=== PATIENT | female | born 1970 | race Caucasian/White ===

== ENCOUNTER → 2018-01-12 11:49 | Outpatient (CLI) | payer MEDICAID, SELFPAY ==
--- NOTE | 2018-01-12 12:38 | DI.REPORT_ITS ---
SYMPTOM/DIAGNOSIS: RT HIP INJECTION, ARTHRITIS RT HIP, M16.11 RIGHT HIP: Fluoroscopy Time: 2 sec A needle is positioned over the right hip joint in conjunction with a joint injection carried out by Dr. Oquendo. Please see the procedure report for further information.
[2018-01-12] MEDS: Bupivacaine 0.5% Pres-Free 10 ML VIAL 5 ML IJ ×2 (13:19→13:21)
[2018-01-12] MEDS: Omnipaque 300 MG/ML 10 ML BTL IJ (13:21)
[2018-01-12] MEDS: methylPREDNISolone ACETATE 80 MG/ML VIAL IM (13:22)
--- NOTE | 2018-01-12 14:11 | PROC.BLANK_ITS ---
Date of Service: 01/12/18 Time of Service: 14:11 Note: OUTPATIENT PROCEDURE NOTE Date of Procedure: January 12, 2018 Procedure: Right Hip Injection under Fluoroscopy Indication for Procedure: Daly has had persistent pain of the RIGHT hip and groin. Noninvasive measures have been tried. To serve as both diagnostic and therapeutic, an injection under fluoroscopy was recommended. I had discussed the risks of the procedure and the patient elected to proceed. Procedure Description: Daly was greeted in the flouroscopy room. The correct side was identified and the consent was reviewed with the patient and signed. The patient was then placed in the supine position on the fluoroscopy table. The RIGHT hip was then prepped with Chloraprep. The anterolateral injection starting point was identiifed by bony landmarks and fluoroscopy. The skin and soft tissue in the tract of the injection was anesthetized with 1% Lidocaine. A spinal needle was then inserted deep into the hip joint at the level of the lateral femoral neck under fluoroscopic guidance. A small amount of Omnipaque solution was injected to confirm intraarticular placement. Once confirmed, the hip was injected with 6cc of 0.5% Bupivicaine and 80mg of Depo- Medrol. A bandaid was placed on the injection site. The patient tolerated the procedure well and noted improvement in pre-injection pain.
== END ==
PROVIDERS: PCP Family Medicine; Visit Provider Student in an Organized Health Care Education/Training Program
DX: M25.552 Pain in left hip (principal); M16.11 Unilateral primary osteoarthritis, right hip
CPT/HCPCS: 20610; 77002; 76000; J1040

== ENCOUNTER 2020-04-23 16:56 | Outpatient (REF) | payer SELFPAY ==
[2020-04-27 13:55] LABS: Patient Race White; SARS-CoV-2 RNA Undetected (Undetected); SARS-CoV-2 Specimen Source Nasal
== END 2020-04-23 17:16 ==
LOC: NCHCN 16:56
PROVIDERS: PCP Family Medicine; Visit Provider Physician Assistant
DX: R05 Cough (principal); Z11.59 Encounter for screening for other viral diseases
CPT/HCPCS: U0003

== ENCOUNTER 2021-05-17 11:47 | Emergency (ER) | payer SELFPAY ==
[2021-05-17 11:51] VITALS: BP 130/92; PULSE 86; RESP 14; TEMP 36.7; O2SAT 96
[2021-05-17] MEDS: Normal Saline 1,000 ML 1000 ML IV (12:10)
[2021-05-17 12:16] LABS: Abs Immature Grans 0.02 10^3/uL (0.0-0.06); Absolute Basophil Count 0.09 10^3/uL (0.0-0.2); Absolute Eosinophil Count 0.17 10^3/uL (0.0-0.7); Absolute Lymphocyte Count 2.95 10^3/uL (1.2-3.4); Absolute Neutrophil Count 4.69 10^3/uL (1.2-6.7); Basophils % 1.1; HCT 46.7 % (36.0-46.0); HGB 15.2 g/dL (11.2-15.7); Immature Grans % 0.2; MCH 28.4 pg (27.0-33.0); MCHC 32.5 % (32.0-36.0); MCV 87.1 fL (80-95); MPV 9.8 fL (8.0-11.0); Monocytes % 5.9; Neutrophils % 55.8; Nucleated RBC 0 %; Platelet Count 401 10^3/uL (130-400); RBC 5.36 10^6/uL (3.93-5.22); RDW 13.9 % (11.7-14.6); RDW-SD 44.5 fL; WBC 8.42 10^3/uL (4.4-10.8)
[2021-05-17 12:27] LABS: Prothrombin Time 9.7 sec (9.3-11.0)
[2021-05-17 12:28] LABS: ALT 18 U/L (14-59); AST 13 U/L (15-37); Albumin 3.4 g/dL (3.4-5.0); Alkaline Phosphatase 72 U/L (46-116); Anion Gap 9.1 mmol/L (3-11); BUN 16 mg/dL (7-18); Bilirubin, Total 0.3 mg/dL (0.2-1.0); CO2 23.9 mmol/L (21.0-32.0); CREATININE 0.8 mg/dL (0.55-1.02); Calcium 8.8 mg/dL (8.5-10.1); Chloride 106 mmol/L (98-107); Glucose 100 mg/dL (74-106); Sodium 139 mmol/L (136-145); Total Protein 6.8 g/dL (6.4-8.2)
--- NOTE | 2021-05-17 13:06 | ED.GENADUL_ITS ---
Discharge Plan Disposition Patient Disposition: HOME Condition: Stable Discharge Details Clinical Impression: Rectal bleeding Primary Care Provider: Laly Johns V ED Provider: Jonathan Mistry Home Meds and New Rx's Prescriptions: Continued ibuprofen [Advil] 200 MG tablet 400 mg PO TID RF: 0 escitalopram oxalate [Lexapro] 20 MG tablet 20 mg PO DAILY RF: 0 omeprazole 20 mg Tablet,Delayed Release (Dr/Ec) 20 mg PO PRN PRNRF: 0 Discharge Instructions Instructions: Rectal Bleeding (ED) Additional Instructions: At this time your laboratory values are unremarkable and your vital signs are hemodynamically stable. CT was discussed and offered but instead you plan to follow-up with surgery to have a colonoscopy. Please watch for new or worsening symptoms and return to the ER for any concerns. Otherwise I recommend contacting the surgical team on Tuesday to discuss your ER visit and need for outpatient reevaluation. I have placed you on the surgical list to help expedite this follow-up. Referrals: Summer Balderas DO [OSTEOPATHIC DOCTOR] - Discharge Data Discharge Date/Time-TO BE ENTERED AT DEPARTURE: 05/17/21 13:29 Medical Decision Making This is a 50-year-old female presenting to the ER reporting bright red blood from her rectum that began on Tuesday and she passed a clot. Since that time she has noticed intermittent bright red blood with bowel movement but no more clotting. She denies generalized weakness, chest pain, shortness of breath, easy bruising or bleeding, abdominal pain, rectal pain, known hemorrhoids. Clinically she appears well, nontoxic and is hemodynamically stable. Abdominal examination is unremarkable. Female RN in room for rectal exam, I do appreciate external hemorrhoid does not appear to be bleeding or thrombosed, nontender. Rectal exam reveals a normal sphincter tone, brown stool, no obvious acute bleeding, hemorrhaging, clotting, etc. Heme positive. Will obtain IV access, give a liter of IV fluid, and obtain routine laboratory values including clotting factors and a type and cross. Laboratory values are unremarkable for evidence of leukocytosis, anemia, thrombocytopenia, etc. Chemistries reveal normal electrolytes, normal renal fun ction, PT is 9.7 INR 1.0. Blood type a positive. Work-up is thus far reassuring. No evidence of anemia. Patient does not require emergent blood transfusion. She remains hemodynamically stable. D iscussed work-up with the patient. We discussed that here in the ER I can obtain CT imaging of her abdomen and pelvis but ultimately she would likely need a surgical referral for a colonoscopy. At this time she declines further evaluation here in the ER as she feels well. I will place her on the surgical list to help expedite outpatient surgical follow-up. She was given strict discharge and return precautions. Upon discharge patient is asymptomatic and has no additional questions or concerns. She is hemodynamically stable. This documentation was generated using [employer] system, please disregard any oddities of phrase or misspellings. Medical Records Medical records reviewed: Yes I reviewed the patient's medical records. Lab Data Lab results reviewed: Yes I reviewed the patient's lab results. Labs: Laboratory Tests Range/Units 05/17/21 05/17/21 05/17/21 12:05 12:05 12:05 WBC (4.4-10.8) 10^3/uL 8.42 RBC (3.93-5.22) 10^6/uL 5.36 H Hgb (11.2-15.7) g/dL 15.2 Hct (36.0-46.0) % 46.7 H MCV (80-95) fL 87.1 MCH (27.0-33.0) pg 28.4 MCHC (32.0-36.0) % 32.5 RDW (11.7-14.6) % 13.9 Plt Count (130-400) 10^3/uL 401 H MPV (8.0-11.0) fL 9.8 Immature Gran % 0.2 Neutrophils % 55.8 Lymphocytes % 35.0 Monocytes % 5.9 Eosinophils % 2.0 Basophils % 1.1 Nucleated RBC % % 0 Absolute Neutrophils (1.2-6.7) 10^3/uL 4.69 Absolute Lymphocytes (1.2-3.4) 10^3/uL 2.95 Absolute Monocytes (0.1-0.8) 10^3/uL 0.50 Absolute Eosinophils (0.0-0.7) 10^3/uL 0.17 Absolute Basophils (0.0-0.2) 10^3/uL 0.09 PT (9.3-11.0) sec 9.7 INR (0.9-1.1) 1.0 Sodium (136-145) mmol/L 139 Potassium (3.5-5.1) mmol/L 4.0 Chloride (98-107) mmol/L 106 Carbon Dioxide (21.0-32.0) mmol/L 23.9 Anion Gap (3-11) mmol/L 9.1 BUN (7-18) mg/dL 16 Creatinine (0.55-1.02) mg/dL 0.8 Estimated GFR/1.73 m2 (mL/min/1.73m2) >= 60.00 Glucose (74-106) mg/dL 100 Calcium (8.5-10.1) mg/dL 8.8 Total Bilirubin (0.2-1.0) mg/dL 0.3 AST (15-37) U/L 13 L ALT (14-59) U/L 18 Alkaline Phosphatase (46-116) U/L 72 Total Protein (6.4-8.2) g/dL 6.8 Albumin (3.4-5.0) g/dL 3.4 Patient ABO/Rh Antibody Screen Range/Units 05/17/21 12:05 WBC (4.4-10.8) 10^3/uL RBC (3.93-5.22) 10^6/uL Hgb (11.2-15.7) g/dL Hct (36.0-46.0) % MCV (80-95) fL MCH (27.0-33.0) pg MCHC (32.0-36.0) % RDW (11.7-14.6) % Plt Count (130-400) 10^3/uL MPV (8.0-11.0) fL Immature Gran % Neutrophils % Lymphocytes % Monocytes % Eosinophils % Basophils % Nucleated RBC % % Absolute Neutrophils (1.2-6.7) 10^3/uL Absolute Lymphocytes (1.2-3.4) 10^3/uL Absolute Monocytes (0.1-0.8) 10^3/uL Absolute Eosinophils (0.0-0.7) 10^3/uL Absolute Basophils (0.0-0.2) 10^3/uL PT (9.3-11.0) sec INR (0.9-1.1) Sodium (136-145) mmol/L Potassium (3.5-5.1) mmol/L Chloride (98-107) mmol/L Carbon Dioxide (21.0-32.0) mmol/L Anion Gap (3-11) mmol/L BUN (7-18) mg/dL Creatinine (0.55-1.02) mg/dL Estimated GFR/1.73 m2 (mL/min/1.73m2) Glucose (74-106) mg/dL Calcium (8.5-10.1) mg/dL Total Bilirubin (0.2-1.0) mg/dL AST (15-37) U/L ALT (14-59) U/L Alkaline Phosphatase (46-116) U/L Total Protein (6.4-8.2) g/dL Albumin (3.4-5.0) g/dL Patient ABO/Rh A Positive Antibody Screen NEGATIVE HPI General Mode of arrival: ambulatory . Date/Time Provider Initiated Documentation: 05/17/21 12:01 . Limitations to Documentation: no limitations . Information obtained by: patient . HPI Narrative: This is a 50-year-old female, reports past medical history of GERD, presenting to the ER for what she describes as bright red blood from her rectum that began on Tuesday. Patient states on Tuesday she noticed a small clot as well. Since that time has had intermittent bleeding from her rectum, no more clots. She states that her stools are brown, denies black tarry stools. She denies history of GI bleeding, other easy bruising or bleeding, or vaginal bleeding. Patient denies any lightheadedness, weakness, recent illness or trauma, chest pain, shortness of breath, abdominal pain, nausea, vomiting, diarrhea. 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 States that on Tuesday she felt a slight abdominal fullness but the sensation is gone away and she denies any pain whatsoever. No change in appetite. Patient reports history of peptic ulcer, second episode x1 earlier this week but does not take it regularly. Related Data Home Medications Medication Instructions Recorded Confirmed escitalopram oxalate [Lexapro] 20 mg PO DAILY tab-cap 11/21/17 05/17/21 ibuprofen [Advil] 400 mg PO TID tab-cap 11/21/17 05/17/21 omeprazole 20 mg PO PRN PRN 05/17/21 05/17/21 Allergies Allergy/AdvReac Type Severity Reaction Status Date / Time Sulfa (Sulfonamide Allergy Mild Itching Unverified 05/17/21 12:00 Antibiotics) Penicillins Allergy Unknown Unverified 05/17/21 12:00 General Stated Complaint: GI Bleed KELLIE: 3 Review of Systems Constitutional Constitutional: Denies fatigue, Denies fever(s) and Denies weakness Cardiovascular Cardiovascular: Denies chest pain and Denies dyspnea Respiratory Respiratory: Denies cough and Denies dyspnea Gastrointestinal Gastrointestinal: Denies abdominal pain, Denies melena, Reports hematochezia, Denies constipation, Denies diarrhea, Denies nausea and Denies vomiting Genitourinary Genitourinary: Denies abnormal vaginal bleeding, Denies hematuria, Denies dysuria and Denies vaginal discharge Musculoskeletal Musculoskeletal: Denies back pain Integumentary/Breasts Skin/Breast: Denies rash Neurologic Neurologic: Denies weakness Endocrine Endocrine: Denies fatigue Hematologic/Lymphatic Hematologic/Lymphatic: Denies easy bleeding and Denies easy bruising PFSH All Active Problems Rectal bleeding (Acute) Social History Smoking/Tobacco Use Status: Current every day Smoking risk assessment performed?: Yes Alcohol Intake: current Alcohol Intake frequency: 0-2 drinks per day Alcohol type: beer Drug use: Never Substance use type: does not use Do you feel safe at home: Yes Do you feel safe in your relationship?: Yes Exam Const General: cooperative, healthy appearing, comfortable and no acute distress Orientation: alert, awake and oriented x3 HENMT Head: normal to inspection, normocephalic and atraumatic Mouth: moist mucous membranes Eyes General: appearance normal, both eyes and all related structures Conjunctivae: conjunctivae normal Neck Neck: normal visual inspection, trachea midline and supple Resp Effort & Inspection: normal respiratory effort and able to speak in complete sentences Auscultation: clear to auscultation bilaterally Cardio Rate: regular rate Rhythm: regular rhythm GI Inspection: normal to inspection Palpation: not firm, no guarding, no pulsatile masses and nontender Auscultation: normal bowel sounds Rectal Exam - female: visual inspection normal, normal sphincter tone, heme positive stool and hemorrhoids (External, nontender or thrombosed) Other: Rectal exam performed with female RN in room. Stool is brown. I cannot appreciate any bright red blood or clots on my examination. Back/Spine/Pelvis Back: No back tenderness Skin General skin exam: no rashes or lesions noted Neuro General: patient alert, patient awake, moves all extremities and no focal motor deficits Cognition: normal cognition Speech: speech normal Gait: normal gait Sensory Exam: no sensory deficits noted Psych Appearance: grossly normal Mental Status: mental status grossly normal Course Vital Signs Vital signs: Vital Signs Temperature 36.7 C 05/17/21 11:51 Pulse 86 05/17/21 11:51 Respiratory Rate 14 05/17/21 11:51 Blood Pressure 130/92 H 05/17/21 11:51 Pulse Oximetry 96 05/17/21 11:51 Temperature 36.7 C 05/17/21 11:51 Temperature Source Skin 05/17/21 11:51 Pulse 86 05/17/21 11:51 Respiratory Rate 14 05/17/21 11:51 Blood Pressure 130/92 H 05/17/21 11:51 Blood Pressure Position Sitting 05/17/21 11:51 Pulse Oximetry 96 05/17/21 11:51 Oxygen Delivery Method Room Air 05/17/21 11:51 Oxygen Flow Rate 0 05/17/21 11:51 Pain Level 1 05/17/21 11:51 Lab/Test Results Lab/Test Results: Laboratory Tests Range/Units 05/17/21 05/17/21 05/17/21 12:05 12:05 12:05 WBC (4.4-10.8) 10^3/uL 8.42 RBC (3.93-5.22) 10^6/uL 5.36 H Hgb (11.2-15.7) g/dL 15.2 Hct (36.0-46.0) % 46.7 H MCV (80-95) fL 87.1 MCH (27.0-33.0) pg 28.4 MCHC (32.0-36.0) % 32.5 RDW (11.7-14.6) % 13.9 Plt Count (130-400) 10^3/uL 401 H MPV (8.0-11.0) fL 9.8 Immature Gran % 0.2 Neutrophils % 55.8 Lymphocytes % 35.0 Monocytes % 5.9 Eosinophils % 2.0 Basophils % 1.1 Nucleated RBC % % 0 Absolute Neutrophils (1.2-6.7) 10^3/uL 4.69 Absolute Lymphocytes (1.2-3.4) 10^3/uL 2.95 Absolute Monocytes (0.1-0.8) 10^3/uL 0.50 Absolute Eosinophils (0.0-0.7) 10^3/uL 0.17 Absolute Basophils (0.0-0.2) 10^3/uL 0.09 PT (9.3-11.0) sec 9.7 INR (0.9-1.1) 1.0 Sodium (136-145) mmol/L 139 Potassium (3.5-5.1) mmol/L 4.0 Chloride (98-107) mmol/L 106 Carbon Dioxide (21.0-32.0) mmol/L 23.9 Anion Gap (3-11) mmol/L 9.1 BUN (7-18) mg/dL 16 Creatinine (0.55-1.02) mg/dL 0.8 Estimated GFR/1.73 m2 (mL/min/1.73m2) >= 60.00 Glucose (74-106) mg/dL 100 Calcium (8.5-10.1) mg/dL 8.8 Total Bilirubin (0.2-1.0) mg/dL 0.3 AST (15-37) U/L 13 L ALT (14-59) U/L 18 Alkaline Phosphatase (46-116) U/L 72 Total Protein (6.4-8.2) g/dL 6.8 Albumin (3.4-5.0) g/dL 3.4 Patient ABO/Rh Antibody Screen Range/Units 05/17/21 12:05 WBC (4.4-10.8) 10^3/uL RBC (3.93-5.22) 10^6/uL Hgb (11.2-15.7) g/dL Hct (36.0-46.0) % MCV (80-95) fL MCH (27.0-33.0) pg MCHC (32.0-36.0) % RDW (11.7-14.6) % Plt Count (130-400) 10^3/uL MPV (8.0-11.0) fL Immature Gran % Neutrophils % Lymphocytes % Monocytes % Eosinophils % Basophils % Nucleated RBC % % Absolute Neutrophils (1.2-6.7) 10^3/uL Absolute Lymphocytes (1.2-3.4) 10^3/uL Absolute Monocytes (0.1-0.8) 10^3/uL Absolute Eosinophils (0.0-0.7) 10^3/uL Absolute Basophils (0.0-0.2) 10^3/uL PT (9.3-11.0) sec INR (0.9-1.1) Sodium (136-145) mmol/L Potassium (3.5-5.1) mmol/L Chloride (98-107) mmol/L Carbon Dioxide (21.0-32.0) mmol/L Anion Gap (3-11) mmol/L BUN (7-18) mg/dL Creatinine (0.55-1.02) mg/dL Estimated GFR/1.73 m2 (mL/min/1.73m2) Glucose (74-106) mg/dL Calcium (8.5-10.1) mg/dL Total Bilirubin (0.2-1.0) mg/dL AST (15-37) U/L ALT (14-59) U/L Alkaline Phosphatase (46-116) U/L Total Protein (6.4-8.2) g/dL Albumin (3.4-5.0) g/dL Patient ABO/Rh A Positive Antibody Screen NEGATIVE PAWSS Have you Been Recently Intoxicated or Drunk Within the Last 30 days?: No Have you Ever Experienced Previous Episodes of Alcohol Withdrawal?: No Have you ever Experienced Withdrawal Seizures?: No Have you ever Experienced Delirium Tremens(DT)s?: No Have you ever undergone Alcohol Rehabilitation Treatment (i.e, inpt ot outpatient treatment programs)?: No Have you ever Experienced Blackouts?: No Have you ever Combined Alcohol with other Downers within the last 90 days?: No Have you ever Combined Alcohol with any other Substance of Abuse during the last 90 days?: No Positive Blood Alcohol level on Presentation? [PCS.BAL]: No Evidence of Increased Autonomic Activity (i.e. HR>120, tremor, sweating, agitation, nausea)?: No Result: 0
--- NOTE | 2021-05-17 13:27 | NUR.NOTE ---
Nursing Note: [facility] bleed needs coloncosopy within 1 week.
[2021-05-17 13:38] VITALS: PULSE 75
== END 2021-05-17 13:29 | disposition home or self-care (01) ==
PROVIDERS: Emergency Provider Physician Assistant; PCP Family Medicine
DX: K62.5 Hemorrhage of anus and rectum (principal); K64.4 Residual hemorrhoidal skin tags
CPT/HCPCS: 80053; 86850; 86900; 86901; 96360; 99284; 85025; 85610; 99283

== ENCOUNTER 2021-07-03 04:15 | Outpatient (CLI) | payer OTHER, SELFPAY ==
[2021-07-03 12:55] LABS: Source Nasal/Nares
[2021-07-03 17:46] LABS: COVID-19 PCR Negative (Negative)
== END 2021-07-03 04:16 | disposition home or self-care (01) ==
LOC: LBO 04:15
PROVIDERS: PCP Family Medicine; Visit Provider Surgery
DX: Z20.822 Contact with and (suspected) exposure to COVID-19 (principal)
CPT/HCPCS: 87635

== ENCOUNTER 2021-07-06 06:06 | Day surgery (SDC) | payer OTHER, SELFPAY ==
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
--- NOTE | 2021-07-06 06:32 | W.PM.DSUDISC ---
Discharge Plan Disposition Patient Disposition: HOME Condition: Good Discharge Details Reason For Visit: Colonoscopy Attending Provider: Romina Srinivasan Primary Care Provider: Laly Johns V Home Meds and New Rx's Prescriptions: Continued multivitamin Tablet 1 tab PO DAILY RF: 0 ibuprofen [Advil] 200 MG tablet 400 mg PO TID RF: 0 escitalopram oxalate [Lexapro] 20 MG tablet 20 mg PO DAILY RF: 0 omeprazole 20 mg Tablet,Delayed Release (Dr/Ec) 20 mg PO PRN PRNRF: 0 Discontinued polyethylene glycol 3350 17 gram/dose powder 238 g PO ONCE Qty: 238 RF: 0 bisacodyl [Dulcolax (bisacodyl)] 5 mg tablet,delayed release (DR/EC) 5 mg PO ONCE Qty: 4 RF: 0 Discharge Instructions Instructions: Colorectal Polyps (DC) Additional Instructions: Findings: rectal mass polyps Follow up: I will call you with results and discuss next steps Please call if you develop: fevers >101.5 Nausea or Vomiting Abdominal pain that is not transient Rectal bleeding that is more then a tbsp A hard abdomen and inability to pass gas DAY SURGERY UNIT POST ENDOSCOPY INSTRUCTIONS Instructions for everyone who is given Anesthesia: For your safety, please do the following for the next 24 Hours: a. Do not drive or operate dangerous equipment b. Do not drink alcohol beverages or use any recreational drugs for the first 24 hours or while taking pain medications. The medications in your body may have a reaction that can be dangerous. c. Do not make any important decisions or sign any important papers 1. Generally there are no restrictions on your activity after a day or so has gone by, but you may feel a bit fatigued for a few days. 2. After you arrive home you may have a light meal and return to a normal diet as you can tolerate it without feeling sick to your stomach. 3. After surgery, you may feel pain or discomfort. This should be only transient, but if it persists please contact your doctor. 4. If there are any questions regarding the findings of your procedure, please feel free to contact your doctor. 6. If you are unable to contact your doctor with a problem, contact the hospital at [phone]. 7. Continue all your regular medications unless directed otherwise. I understand the above instructions and have no questions. Signature of Patient or Responsible Adult Escort Date/Time Name of Responsible Adult Escort Signature of Nurse Date/Time Activity:: Activity as Tolerated Diet:: As Tolerated Discharge Orders Discharge Orders: Discharge Order (Routine); Ordered 07/06/21 Ordered By: Romina Srinivasan
--- NOTE | 2021-07-06 06:34 | W.COLOREPORT ---
Colonoscopy Report Date of procedure: 07/06/21 Pre-op diagnosis general: rectal bleeding Post-op diagnosis procedure note: other (rectal mass, colorectal polyps) Procedure: Colonoscopy with polypectomy and partial resection of mass Surgeon: Romina Srinivasan Anesthesia Type: General:No Airway (Chapin Velasquez CRNA) Estimated blood loss (mL): 5 Pathology: other (Descending polyp x3, sigmoid polyp x3, polyp at 23 cm, polyp @ 18 cm x2 and partial resection of rectal mass) Complications: None Disposition: same day Indications: Mrs Gonzalez is a pleasant 50-year-old female who was seen in the emergency department on May 17 for rectal bleeding. She tells me the bleeding has now stopped. She bled for about a week and towards the middle of the week she did have some clots. The blood was bright red. She had no rectal or abdominal pain. There is no family history of colon cancer. She has not had any unintentional weight loss or changes in bowel habits. She has never had a colonoscopy. She does state that right before this started she was in a null to get to work and did bear down to have a bowel movement. The stool itself was soft. She does have a known history of hemorrhoids. Examined ER showed some external hemorrhoids without bleeding. Rectal exam revealed some brown stool and no blood. Labs in the emergency department were stable. Prep: Miralax/Dulcolax Procedure Start Time: 07:21 Procedure End Time: 08:12 Retraction Time: 28 minutes Findings: 9 polyps, both sessile and one pedunculated. Rectal mass, partially removed with a snare Procedure Description: After informed consent was obtained the patient was taken to the procedure room and placed in a left decubitous position. Monitors were applied and a time out was done. The patients name, date of , procedure, allergies to medications and metal in their body was reviewed. The patient was then sedated. Once sedated and comfortable a rectal exam was done. External exam was normal. Internal exam revealed a normal sphincter tone and no palpable masses. The scope was then introduced and retro-flexed. No internal hemorrhoids, polyps were identified on retro-flexion. There was a rectal mass just proximal to the dentate line. The scope was then advanced to the cecum without difficulty. The ileocecal vlave and appendiceal orifice were identified. The prep was marginal in the right colon. There was bile stuck to the elmore. Small polyps could have been missed. The scope was then slowly retracted over 28 minutes back into the rectum. Polyps were removed with coldd forceps in the descending colon x3, sigmoid colon x3, and with cot snare at 23 cm, 18 cm and partial resection of rectal mass. The mucosa was tattooed. There was no diverticulosis noted. The scope was removed and the patient was woken up and taken back to Same day surgery in stable condition. The patient tolerated the procedure well and there were no immediate complications. Follow up: I will call the patient with the results and discuss next steps once I have the pathology results.
[2021-07-06 06:40] VITALS: BP 129/89; PULSE 89; RESP 16; TEMP 36.4; O2SAT 96
[2021-07-06] MEDS: Lactated Ringers 1,000 ML 80 ML IV (06:46)
[2021-07-06 07:07] VITALS: BMI 27.4
--- NOTE | 2021-07-06 07:48 | BOWEL_PTH ---
PATIENT: Daly Gonzalez LOC: [facility] U#:[id number] AGE/SX: 51/F ROOM: RE07/06/[address]: Romina Srinivasan MD : [id number] BED: DIS: 07/06/2021 SPEC #: [id number] RECD: 07/06/21 12:10 STATUS: TANI RELeann #: [id number] CONSTANZA: 07/06/21 07:[address]: Romina Srinivasan DEPT: Surgical Specimen RECD BY: Ondina Good ENTERED: 07/06/21 12:15 SP TYPE: Bowel OTHR DR: Laly Johns V Tissues: 1 - BIOPSY BOWEL 2 - BIOPSY BOWEL 3 - BIOPSY BOWEL 4 - BIOPSY BOWEL 5 - BIOPSY BOWEL Procedures: GROSS AND MICRO LEVEL 4 Comments: [id number]
[2021-07-06] MEDS: Endoscopic Tattoo 5 ML SYR IJ (08:11)
[2021-07-06 08:25] VITALS: BP 109/67; PULSE 77; RESP 16; TEMP 35.7; O2SAT 94
--- NOTE | 2021-07-06 08:37 | W.ANESPOSTOP ---
Postoperative Evaluation Date, Time and Location Date Performed: 07/06/21 Time Performed: 08:25 Patient Location: Day Surgery Unit Vital Signs Most Recent Imported Vital Signs: Most Recent Vital Signs Temp Pulse Resp BP Pulse Ox 35.7 C L 77 16 109/67 94 07/06/21 08:25 07/06/21 08:25 07/06/21 08:25 07/06/21 08:25 07/06/21 08:25 Pain Score Most Recent Pain Score: Most Recent Pain Score Pain Level 0 07/06/21 08:25 Assessment Mental Status: Awake (Alert & Oriented to Patient Baseline) Airway and Respiratory Function: Patent airway with normal (patient baseline) respiratory exam Cardiovascular Function: Hemodynamically Stable Hydration Status: Adequately Hydrated Nausea & Vomiting: No Nausea or Vomiting Pain: Pt. Denies Any Pain Peripheral Nerve Block: Patient did not receive a nerve block
[2021-07-06 08:51] VITALS: BP 127/83; PULSE 68; RESP 20; TEMP 36.5; O2SAT 96
== END 2021-07-06 09:34 | disposition home or self-care (01) ==
PROVIDERS: PCP Family Medicine; Visit Provider Surgery
PROC: 0DJD8ZZ Inspection of Lower Intestinal Tract, Via Natural or Artificial Opening Endoscopic (ICD-10-PCS; CPT 45378; principal; 2021-07-06 07:30)
DX: K62.5 Hemorrhage of anus and rectum (principal); K62.89 Other specified diseases of anus and rectum; K62.1 Rectal polyp; F17.210 Nicotine dependence, cigarettes, uncomplicated; K63.5 Polyp of colon; D12.5 Benign neoplasm of sigmoid colon
CPT/HCPCS: 45385; 45380; 45381; 88305; J2001

== ENCOUNTER 2021-10-27 15:46 | Outpatient (REF) | payer OTHER, SELFPAY ==
[2021-10-27 21:04] LABS: Abs Immature Grans 0.05 10^3/uL (0.0-0.06); Absolute Basophil Count 0.08 10^3/uL (0.0-0.2); Absolute Eosinophil Count 0.26 10^3/uL (0.0-0.7); Absolute Lymphocyte Count 3.88 10^3/uL (1.2-3.4); Absolute Monocyte Count 0.64 10^3/uL (0.1-0.8); Absolute Neutrophil Count 4.23 10^3/uL (1.2-6.7); Basophils % 0.9; Eosinophils % 2.8; HCT 48.3 % (36.0-46.0); HGB 15.7 g/dL (11.2-15.7); Immature Grans % 0.5; Lymphocytes % 42.5; MCH 27.9 pg (27.0-33.0); MCHC 32.5 % (32.0-36.0); MCV 86 fL (80-95); MPV 10.5 fL (8.0-11.0); Neutrophils % 46.3; Platelet Count 406 10^3/uL (130-400); RBC 5.62 10^6/uL (3.93-5.22); RDW 14.1 % (11.7-14.6); RDW-SD 43.8 fL; WBC 9.14 10^3/uL (4.4-10.8)
[2021-10-27 21:24] LABS: ALT 31 U/L (14-59); AST 20 U/L (15-37); Albumin 3.8 g/dL (3.4-5.0); Alkaline Phosphatase 97 U/L (46-116); Anion Gap 9.9 mmol/L (3-11); BUN 15 mg/dL (7-18); Bilirubin, Total 0.3 mg/dL (0.2-1.0); CO2 24.1 mmol/L (21.0-32.0); CREATININE 0.8 mg/dL (0.55-1.02); Calcium 9.6 mg/dL (8.5-10.1); Chloride 105 mmol/L (98-107); Glucose 88 mg/dL (74-106); Magnesium 2.1 mg/dL (1.8-2.4); Potassium 4.8 mmol/L (3.5-5.1); Sodium 139 mmol/L (136-145); TSH (W/Ref FT4) 1.49 uIU/mL (0.36-3.74); Total Protein 7.1 g/dL (6.4-8.2)
[2021-10-27 21:34] LABS: ESR 34 mm/hr (0-30)
[2021-10-27 21:36] LABS: Bilirubin Negative (Negative); Blood Negative (Negative); Clarity Clear (Clear); Glucose Negative (Negative); Ketones Negative (Negative); Leukocyte Esterase Negative (Negative); Nitrite Negative (Negative); Specific Gravity 1.025 (1.005-1.025); Urobilinogen 0.2 EU/dL (Up TO 0.2); pH 5.5 (5-8)
== END 2021-10-27 15:47 | disposition home or self-care (01) ==
LOC: LBN 15:46
PROVIDERS: PCP Family Medicine; Visit Provider Nurse Practitioner Family
DX: R53.1 Weakness (principal)
CPT/HCPCS: 80053; 85652; 81003; 83735; 84443; 85025